=== PATIENT | male | born 1945 | race Caucasian/White ===

== ENCOUNTER 2017-12-13 08:00 | Outpatient (RCR) | payer MEDICARE, OTHER, SELFPAY ==
--- NOTE | 2017-11-26 10:02 | HP.PTEVAL_ITS ---
Patient's Visit Information RANDA ODEN is a 72 year old M referred to Physical Therapy by ALFRED MCKEON with a diagnosis of Imtervertebral disc degeneration...lumbar, radicuolopathy, spinal stenosis. Date of Evaluation: 11/26/17 Physical Therapist: Shital Armando - Visit Plan Frequency: 2x /Week Duration: 4 Weeks Plan: 2X/ week for 4 weeks for R ankle stretching, strengthening, R hip and knee strengthening, core stability, and gait training with HEP. ++++Keep in mind B has 2 B THR and 2 B TKR - Subjective Subjective: Pt reports that he had some bone spurs taken out of his back and they were pressing on the nerve. He reports that his foot has been slapping for 3 years now and has gotten weaker and weaker. He feels that his R leg is getting stronger. His surgery was 10-23-2017. Dr wanted pt to go to PT and get better faster. He has no pain. He has no trouble going up and down stairs but he uses the railing. No trouble getting out of a chair and he uses his arms cause he has had B knee replacements and B hip replacement. Pt is retired and he tinkers around his house. Dr said to use common sense and no other restrictions. Pt is going on a cruise in mid Nov. - Objective Tight R gastroc..... AROM R DF -22 degrees 12 degrees Ev, 15 degrees INV,. R ankle MMT: DF 2-/5, PF 4-/5, EV 3+/5 and INV 3+/5. LE MMT: hip flex R 4-/5, L hip flex 4/5, Hip abd R 4-/5 and L 4/5, Knee flex B 4/5, Knee ext B 4/5, hip ext B 4/5. Trunk AROM: flex 75%, Ext 75%, SB B 75%m Rot B 75%. Gait: walks with decreased stance time on the R and increased foot slap on the R. Posture: increased slouched posture - Goals Goal 1:: I HEP for R gastroc stretching and R DF strengtheing and R LE strength and core strength Goal Time Frame: 2-4 Weeks Goal 2:: Increase R ankle DF to -5 degrees from neutral Goal Time Frame: 2-4 Weeks Goal 3:: Walk with increased awarness of R foot slap. Goal Time Frame: 2-4 Weeks - Rehabilitation Potential Rehabilitation Potential: Good - Anticipated Interventions Patient/Client Instruction: Educate patient on: Plan of Care For the Purpose of:: To increase ROM, To increase oxygenation perfusion, To improve muscle performance and motor function, To improve ability to perform ADL 's, To increase tolerance to activity/condition/position, To improve performance and independence with ADL's, To improve gait and locomotor functions , To improve health of tissue, To decrease soft tissue restriction, To increase flexibility/ROM, To improve safety with gait Therapeutic Exercise to Include: Strength training, Body mechanics, Postural training, Flexibilty training, Gait and locomotor training, Passive ROM, Active ROM, Dynamic Lumbar Stabilization For the Purpose of:: To decrease pain, To increase ROM, To improve nutrient delivery to tissue, To improve muscle performance and motor function, To improve ability to perform ADL's, To increase tolerance to activity/condition/ position, To improve health of tissue, To decrease soft tissue restriction, To increase flexibility/ROM Functional Training to Include: Gait training For the Purpose of:: To improve gait and locomotor functions, To improve safety with gait Manual Therapy Techniques to Include: Passive ROM For the Purpose of:: To increase ROM Thank you for the opportunity to evaluate your patient. For Medicare and Medicare HMO plans, please review the plan of care and approve it. It will need to be FAXED BACK to us at [phone] for Medicare purposes. Please let me know if there are questions or concerns regarding this plan of care. Physician Signature: Date:
--- NOTE | 2017-12-13 08:24 | HP.PTDCSUM_ITS ---
HP - PT D/C Summary It has been my pleasure to treat RANDA ODEN under orders from GREGORY AGRAWAL JARED for the diagnosis of Imtervertebral disc degeneration...lumbar , radicuolopathy, spinal stenosis for a total of 6 visit(s). Discharge Date: 12/13/17 Please see the following information for a summary of their discharge status. - Subjective Subjective: Pt reports no pain. He reports that his L is still weak but he is feeling it is getting stronger. - Pain R foot Pain Intensity (Out of 10): 0 - Overall Improvement % Improvement: 80 - Objective Objective/Function: Pt still walks with a R foor slap but pt tries to control it more now since the eval. His R ankle DF is -7 degrees from neutral. Pt feels that he is I HEP and will continue to do exercises on the cruise and at home. - Goals Goal 1:: I HEP for R gastroc stretching and R DF strengtheing and R LE strength and core strength Goal Progress: Goal Met Goal 2:: Increase R ankle DF to -5 degrees from neutral Goal Progress: Progressing Goal 3:: Walk with increased awarness of R foot slap. Goal Progress: Progressing - Plan Plan: DC PT to HEP - D/C Information Discharge Comments: DC PT to HEP. Pt will continue with his strengthening at home. He knows that it will take a long time to recover and will continue to work on it at home. If there are questions or concerns regarding this patient's physical therapy, please feel free to call me at [phone]. Thank you for the referral of this patient. Sincerely, Shital Armando
== END 2017-12-13 19:00 | disposition home or self-care (01) ==
LOC: PT 08:00
PROVIDERS: Family Provider Family Medicine Geriatric Medicine; PCP Family Medicine Geriatric Medicine
DX: M51.36 Other intervertebral disc degeneration, lumbar region (principal); M54.16 Radiculopathy, lumbar region; M54.5 Low back pain; M48.062 Spinal stenosis, lumbar region with neurogenic claudication; Z96.641 Presence of right artificial hip joint
CPT/HCPCS: 97110; 97161; 97530

== ENCOUNTER → 2018-03-17 10:08 | Outpatient (CLI) | payer MEDICARE, OTHER, SELFPAY ==
[2018-03-17 12:50] LABS: Absolute Lymphocyte Count 1.41 X10^3/ul (0.83-4.51); Basophil# 0.02 X10^3/uL; Basophil% 0.3 % (0-1); Eosinophil# 0.15 X10^3/uL; Eosinophils% 2.1 % (0-5); Hemoglobin 14.6 g/dl (13.0-16.5); Lymphocyte # 1.41 X10^3/ul (4.0); Lymphocyte % 19.5 % (19-41); Mean Corpuscular Hgb 30.4 pg (27.0-32.0); Mean Corpuscular Volume 89.6 fL (80-94); Mean Platelet Vol. 10.5 fl (6.2-12.0); Monocyte# 0.68 X10^3/uL; Monocyte% 9.4 % (0-10); Neutrophil # 4.95 X10^3/uL (2.7-7.7); Neutrophil % 68.6 % (47-70); Platelet Count 255 K/mm3 (150-450); RBC Distribution Width CV 13.6 % (11.6-14.6); RBC Distribution Width SD 44.1 fl (35.1-43.9); White Blood Count 7.2 K/mm3 (4.4-11.0)
[2018-03-17 12:52] LABS: POSITIVE COUNT NO; POSITIVE DIFFERENTIAL NO; POSITIVE MORPHOLOGY NO
[2018-03-17 12:58] LABS: Vitamin D,25 Hydroxy 26.3 ng/mL (29.95-100.01)
[2018-03-17 12:59] LABS: AST(SGOT) 23 U/L (15-37); Alanine Aminotransfer ALT/SGPT 41 U/L (16-61); Albumin, Serum 3.9 g/dL (3.2-5.0); Alkaline Phosphatase 85 U/L (45-117); BUN 18 mg/dL (7-18); BUN/Creat Ratio 19.1 RATIO (10-20); Calcium,Total 9.5 mg/dL (8.5-10.1); Chloride 100 mmol/L (98-107); Creatinine, Serum 0.94 mg/dL (0.70-1.30); EST Glomerular Filtration Rate 84 mL/min (>60); Est Glom Filt Rate - Afr Amer 101 mL/min (>60); Globulin 3.8 g/dL (2.2-4.2); Glucose 114 mg/dL (74-106); Protein, Total 7.7 g/dL (6.4-8.2); Sodium Level 137 mmol/L (136-145)
[2018-03-17 13:00] LABS: Anion Gap 8 (5-15); Thyroid Stim Hormone (TSH) 1.19 uIU/mL (0.358-3.74)
== END ==
PROVIDERS: Family Provider Family Medicine Geriatric Medicine; PCP Family Medicine Geriatric Medicine; Visit Provider Family Medicine Geriatric Medicine
DX: E11.9 Type 2 diabetes mellitus without complications (principal); E55.9 Vitamin D deficiency, unspecified; I10 Essential (primary) hypertension; Z13.89 Encounter for screening for other disorder
CPT/HCPCS: 36415; 80053; 82306; 84443; 85025

== ENCOUNTER → 2018-09-30 11:46 | Outpatient (CLI) | payer MEDICARE, OTHER, SELFPAY ==
[2018-09-30 12:29] LABS: Absolute Neutrophil Count 4.6 X10^3/uL (2.0-7.7); Basophil# 0.01 X10^3/uL; Basophil% 0.1 % (0-1); Eosinophil# 0.16 X10^3/uL; Eosinophils% 2.3 % (0-5); Hematocrit 44.6 % (40-54); Hemoglobin 14.6 g/dl (13.0-16.5); Lymphocyte % 23.3 % (19-41); Mean Corp Hgb Conc 32.7 g/gl (32-36); Mean Corpuscular Hgb 29.9 pg (27.0-32.0); Mean Corpuscular Volume 91.4 fL (80-94); Mean Platelet Vol. 10.1 fl (6.2-12.0); Monocyte# 0.48 X10^3/uL; Neutrophil # 4.63 X10^3/uL (2.7-7.7); Neutrophil % 67.3 % (47-70); Platelet Count 266 K/mm3 (150-450); RBC Distribution Width CV 13.7 % (11.6-14.6); RBC Distribution Width SD 45.2 fl (35.1-43.9); Red Blood Count 4.88 M/mm3 (4.6-6.2); White Blood Count 6.9 K/mm3 (4.4-11.0)
[2018-09-30 12:32] LABS: POSITIVE COUNT NO; POSITIVE DIFFERENTIAL NO; POSITIVE MORPHOLOGY NO
[2018-09-30 12:51] LABS: Vitamin D,25 Hydroxy 30.6 ng/mL (29.95-100.01)
[2018-09-30 12:54] LABS: AST(SGOT) 24 U/L (15-37); Alanine Aminotransfer ALT/SGPT 36 U/L (16-61); Albumin, Serum 3.8 g/dL (3.2-5.0); Alkaline Phosphatase 77 U/L (45-117); Anion Gap 9 (5-15); BUN 21 mg/dL (7-18); BUN/Creat Ratio 19.8 RATIO (10-20); Calcium,Total 9.2 mg/dL (8.5-10.1); Chloride 102 mmol/L (98-107); Creatinine, Serum 1.06 mg/dL (0.70-1.30); EST Glomerular Filtration Rate 73 mL/min (>60); Est Glom Filt Rate - Afr Amer 88 mL/min (>60); Globulin 3.9 g/dL (2.2-4.2); Glucose 128 mg/dL (74-106); Potassium 4.1 mmol/L (3.5-5.1); Protein, Total 7.7 g/dL (6.4-8.2); Sodium Level 139 mmol/L (136-145); Thyroid Stim Hormone (TSH) 1.06 uIU/mL (0.358-3.74)
== END ==
PROVIDERS: Family Provider Family Medicine Geriatric Medicine; PCP Family Medicine Geriatric Medicine; Visit Provider Family Medicine Geriatric Medicine
DX: E11.9 Type 2 diabetes mellitus without complications (principal); E55.9 Vitamin D deficiency, unspecified
CPT/HCPCS: 36415; 80053; 82306; 84443; 85025

== ENCOUNTER → 2019-04-02 | Outpatient (CLI) | payer MEDICARE, OTHER, SELFPAY ==
[2019-04-02 12:44] LABS: Absolute Lymphocyte Count 1.15 X10^3/ul (0.83-4.51); Absolute Neutrophil Count 4.1 X10^3/uL (2.0-7.7); Basophil# 0.01 X10^3/uL; Basophil% 0.2 % (0-1); Eosinophil# 0.21 X10^3/uL; Eosinophils% 3.4 % (0-5); Hemoglobin 14.8 g/dl (13.0-16.5); Lymphocyte # 1.15 X10^3/ul (4.0); Lymphocyte % 18.6 % (19-41); Mean Corp Hgb Conc 33.6 g/gl (32-36); Mean Corpuscular Hgb 30.6 pg (27.0-32.0); Mean Corpuscular Volume 91.1 fL (80-94); Mean Platelet Vol. 10.4 fl (6.2-12.0); Monocyte# 0.66 X10^3/uL; Monocyte% 10.7 % (0-10); Neutrophil # 4.13 X10^3/uL (2.7-7.7); Neutrophil % 66.9 % (47-70); Platelet Count 239 K/mm3 (150-450); RBC Distribution Width CV 13.3 % (11.6-14.6); RBC Distribution Width SD 43.9 fl (35.1-43.9); Red Blood Count 4.83 M/mm3 (4.6-6.2); White Blood Count 6.2 K/mm3 (4.4-11.0)
[2019-04-02 13:02] LABS: POSITIVE COUNT NO; POSITIVE DIFFERENTIAL NO; POSITIVE MORPHOLOGY NO
[2019-04-02 13:16] LABS: ALB/GLOB Ratio 0.9 RATIO (0.9-2.4); AST(SGOT) 18 U/L (15-37); Alanine Aminotransfer ALT/SGPT 41 U/L (16-61); Albumin, Serum 3.6 g/dL (3.2-5.0); Alkaline Phosphatase 74 U/L (45-117); Anion Gap 10 (5-15); BUN 16 mg/dL (7-18); BUN/Creat Ratio 16.7 RATIO (10-20); Chloride 101 mmol/L (98-107); Creatinine, Serum 0.96 mg/dL (0.70-1.30); EST Glomerular Filtration Rate 82 mL/min (>60); Est Glom Filt Rate - Afr Amer 99 mL/min (>60); Globulin 3.8 g/dL (2.2-4.2); Glucose 170 mg/dL (74-106); Protein, Total 7.4 g/dL (6.4-8.2); Sodium Level 139 mmol/L (136-145); Thyroid Stim Hormone (TSH) 0.75 uIU/mL (0.358-3.74)
[2019-04-02 13:17] LABS: Vitamin D,25 Hydroxy 25.8 ng/mL (29.95-100.01)
== END | disposition home or self-care (01) ==
LOC: POLAB3 09:20
PROVIDERS: Family Provider Family Medicine Geriatric Medicine; PCP Family Medicine Geriatric Medicine; Visit Provider Family Medicine Geriatric Medicine
DX: E11.9 Type 2 diabetes mellitus without complications (principal); E55.9 Vitamin D deficiency, unspecified; I10 Essential (primary) hypertension
CPT/HCPCS: 36415; 80053; 82306; 84443; 85025

== ENCOUNTER → 2019-10-05 11:37 | Outpatient (CLI) | payer MEDICARE, OTHER, SELFPAY ==
[2019-10-05 12:31] LABS: Absolute Lymphocyte Count 0.88 X10^3/uL (0.83-4.51); Absolute Neutrophil Count 7.7 X10^3/uL (2.0-7.7); Basophil# 0.04 X10^3/uL; Basophil% 0.4 % (0-1); Eosinophil# 0.17 X10^3/uL; Eosinophils% 1.7 % (0-5); Hematocrit 44.4 % (40-54); Hemoglobin 14.7 g/dL (13.0-16.5); Lymphocyte # 0.88 X10^3/ul (4.0); Lymphocyte % 8.8 % (19-41); Mean Corp Hgb Conc 33.1 g/dL (32-36); Mean Corpuscular Hgb 30.2 pg (27.0-32.0); Mean Corpuscular Volume 91.2 fL (80-94); Mean Platelet Vol. 10.5 fl (6.2-12.0); Monocyte# 1.19 X10^3/uL; Monocyte% 11.9 % (0-10); NRBC Flagged by Analyzer 0 % (0-5); Neutrophil # 7.71 X10^3/uL (2.7-7.7); Neutrophil % 76.8 % (47-70); Platelet Count 228 K/mm3 (150-450); RBC Distribution Width CV 12.8 % (11.6-14.6); RBC Distribution Width SD 43.1 fl (35.1-43.9); Red Blood Count 4.87 M/mm3 (4.6-6.2)
[2019-10-05 12:52] LABS: Vitamin B12 910 pg/mL (211-911); Vitamin D,25 Hydroxy 17.4 ng/mL (29.95-100.01)
[2019-10-05 13:10] LABS: ALB/GLOB Ratio 0.8 RATIO (0.9-2.4); AST(SGOT) 19 U/L (15-37); Alanine Aminotransfer ALT/SGPT 35 U/L (16-61); Albumin, Serum 3.5 g/dL (3.2-5.0); Alkaline Phosphatase 94 U/L (45-117); Anion Gap 7 (5-15); BUN 24 mg/dL (7-18); BUN/Creat Ratio 20.2 RATIO (10-20); Calcium,Total 9.1 mg/dL (8.5-10.1); Chloride 99 mmol/L (98-107); Creatinine, Serum 1.19 mg/dL (0.70-1.30); EST Glomerular Filtration Rate 64 mL/min (>60); Est Glom Filt Rate - Afr Amer 77 mL/min (>60); Globulin 4.3 g/dL (2.2-4.2); Glucose 240 mg/dL (74-106); Protein, Total 7.8 g/dL (6.4-8.2); Sodium Level 135 mmol/L (136-145); Thyroid Stim Hormone (TSH) 0.85 uIU/mL (0.358-3.74)
== END ==
PROVIDERS: Family Provider Family Medicine Geriatric Medicine; PCP Family Medicine Geriatric Medicine; Visit Provider Family Medicine Geriatric Medicine
DX: E11.9 Type 2 diabetes mellitus without complications (principal); E55.9 Vitamin D deficiency, unspecified; I10 Essential (primary) hypertension
CPT/HCPCS: 36415; 80053; 82306; 82607; 84443; 85025

== ENCOUNTER → 2019-10-06 11:48 | Outpatient (CLI) | payer MEDICARE, OTHER, SELFPAY ==
--- NOTE | 2019-10-06 12:48 | CT_ITS ---
STUDY: CT BRAIN WITHOUT CONTRAST REASON FOR EXAM: Male, 73 years old. Frontal head injury due to a fall. RADIATION DOSAGE (If Supplied By Facility): CTDIvol = ( 60.81 ) mGy, DLP = ( 1089.89 ) mGycm TECHNIQUE: Transaxial CT imaging of the brain was performed without administration of intravenous contrast material. Individualized dose optimization techniques were used for this CT. COMPARISON: No relevant priors. FINDINGS: Normal soft tissue structures. Normal calvarium. There is mild cerebral atrophy with widening of the extra-axial spaces and ventricular dilatation. There are areas of decreased attenuation within the white matter tracts of the supratentorial brain, consistent with microvascular disease changes. There are small punctate calcifications of the basal ganglia which are seen in the aging brain as a normal variant. Normal brainstem. Normal cerebellum. There is no intracranial hemorrhage. There are no findings of an acute ischemic infarction. Atherosclerotic calcification of the cavernous portions of the internal carotid arteries as well as the vertebral arteries. Normal visualized paranasal sinuses. CT/Brain/Head without Contrast IMPRESSION: Chronic involutional changes of the brain. Electronically Signed: Guero Fry, at 13:59 EST , Service support ,
--- NOTE | 2019-10-06 12:48 | CT_ITS ---
STUDY: CT ABDOMEN AND PELVIS WITH CONTRAST REASON FOR EXAM: Male, 73 years old. Left-sided abdominal pain. RADIATION DOSAGE (If Supplied By Facility): CTDIvol = ( 20.72 ) mGy, DLP = ( 1209.99 ) mGycm TECHNIQUE: Transaxial images were obtained from the dome of the diaphragm to the symphysis pubis without oral contrast. 100ML ISOVUE 370 was administered. Sagittal and coronal images were reconstructed. Individualized dose optimization techniques were used for this CT. COMPARISON: None. FINDINGS: The visualized lung bases are unremarkable. Coronary artery calcification. There is decreased attenuation of the liver consistent with steatosis. Normal gallbladder and extrahepatic biliary system. There is a benign calcified granuloma of the spleen. Normal pancreas. Normal bilateral adrenal glands. Normal right kidney. There is a 4.7 cm by 5.4 cm cyst in the upper pole of the left kidney. There is a small hiatal hernia. Normal small intestine. There are multiple colonic diverticula consistent with diverticulosis. The appendix is visualized and appears normal. There is scattered atherosclerotic calcification of the abdominal aorta, without a demonstrated aneurysm. Normal inferior vena cava. Normal retroperitoneum. Diffusely thickened bladder wall although the bladder is not completely distended. There is small bilateral inguinal hernia containing adipose tissue. There are diffuse degenerative changes of the visualized lumbar spine. The patient is status post bilateral hip replacement. This causes beam hardening artifact with decreased assessment of the pelvic structures. CT/Abdomen/Pelvis WITH Contrast IMPRESSION: Fatty infiltration of the liver. Small hiatal hernia. Left renal cyst. Sigmoid diverticulosis. Electronically Signed: Guero Fry, at 13:58 EST , Service support ,
== END ==
PROVIDERS: Family Provider Family Medicine Geriatric Medicine; PCP Family Medicine Geriatric Medicine; Referring Provider Family Medicine Geriatric Medicine; Visit Provider Family Medicine Geriatric Medicine
DX: N39.0 Urinary tract infection, site not specified (principal); R10.9 Unspecified abdominal pain
CPT/HCPCS: 70450; 74177; 87077; 87086; 87088; 87186; Q9967

== ENCOUNTER → 2020-04-12 11:54 | Outpatient (CLI) | payer MEDICARE, OTHER, SELFPAY ==
[2020-04-12 12:32] LABS: Basophil# 0.03 X10^3/uL; Basophil% 0.4 % (0-1); Eosinophil# 0.18 X10^3/uL; Eosinophils% 2.5 % (0-5); Hemoglobin 14.9 g/dL (13.0-16.5); Lymphocyte % 19.2 % (19-41); Mean Corp Hgb Conc 33.1 g/dL (32-36); Mean Corpuscular Hgb 30.3 pg (27.0-32.0); Mean Corpuscular Volume 91.6 fL (80-94); Mean Platelet Vol. 10.5 fl (6.2-12.0); Monocyte# 0.64 X10^3/uL; Monocyte% 8.8 % (0-10); NRBC Flagged by Analyzer 0 % (0-5); Neutrophil # 5.03 X10^3/uL (2.7-7.7); Neutrophil % 68.7 % (47-70); Platelet Count 249 K/mm3 (150-450); RBC Distribution Width SD 43.4 fl (35.1-43.9); Red Blood Count 4.91 M/mm3 (4.6-6.2); White Blood Count 7.3 K/mm3 (4.4-11.0)
[2020-04-12 12:50] LABS: Vitamin D,25 Hydroxy 29.6 ng/mL
[2020-04-12 13:03] LABS: AST(SGOT) 21 U/L (15-37); Alanine Aminotransfer ALT/SGPT 37 U/L (16-61); Albumin, Serum 3.8 g/dL (3.2-5.0); Alkaline Phosphatase 76 U/L (45-117); Anion Gap 7 (5-15); BUN 15 mg/dL (7-18); BUN/Creat Ratio 16.4 RATIO (10-20); Calcium,Total 9.4 mg/dL (8.5-10.1); Chloride 101 mmol/L (98-107); Creatinine, Serum 0.92 mg/dL (0.70-1.30); EST Glomerular Filtration Rate 86 mL/min (>60); Est Glom Filt Rate - Afr Amer 104 mL/min (>60); Globulin 3.8 g/dL (2.2-4.2); Glucose 162 mg/dL (74-106); Potassium 4.1 mmol/L (3.5-5.1); Protein, Total 7.6 g/dL (6.4-8.2); Sodium Level 138 mmol/L (136-145); Thyroid Stim Hormone (TSH) 0.96 uIU/mL (0.358-3.74)
== END ==
PROVIDERS: PCP Family Medicine Geriatric Medicine; Visit Provider Family Medicine Geriatric Medicine
DX: E11.9 Type 2 diabetes mellitus without complications (principal); E55.9 Vitamin D deficiency, unspecified; I10 Essential (primary) hypertension
CPT/HCPCS: 36415; 80053; 82306; 84443; 85025

== ENCOUNTER → 2020-10-13 09:01 | Outpatient (CLI) | payer MEDICARE, OTHER, SELFPAY ==
[2020-10-13 13:13] LABS: Absolute Lymphocyte Count 1.38 X10^3/uL (0.83-4.51); Absolute Neutrophil Count 5.5 X10^3/uL (2.0-7.7); Basophil# 0.02 X10^3/uL; Basophil% 0.3 % (0-1); Eosinophil# 0.18 X10^3/uL; Eosinophils% 2.3 % (0-5); Hematocrit 46.3 % (40-54); Lymphocyte # 1.38 X10^3/ul (4.0); Lymphocyte % 17.8 % (19-41); Mean Corp Hgb Conc 32.4 g/dL (32-36); Mean Corpuscular Hgb 29.6 pg (27.0-32.0); Mean Corpuscular Volume 91.3 fL (80-94); Mean Platelet Vol. 10.1 fl (6.2-12.0); Monocyte# 0.67 X10^3/uL; Monocyte% 8.7 % (0-10); NRBC Flagged by Analyzer 0 % (0-5); Neutrophil # 5.47 X10^3/uL (2.7-7.7); Neutrophil % 70.6 % (47-70); Platelet Count 274 K/mm3 (150-450); RBC Distribution Width CV 12.9 % (11.6-14.6); RBC Distribution Width SD 43.1 fl (35.1-43.9); Red Blood Count 5.07 M/mm3 (4.6-6.2); White Blood Count 7.7 K/mm3 (4.4-11.0)
[2020-10-13 13:28] LABS: Vitamin D,25 Hydroxy 31.9 ng/mL
[2020-10-13 13:33] LABS: AST(SGOT) 14 U/L (15-37); Alanine Aminotransfer ALT/SGPT 32 U/L (16-61); Albumin, Serum 3.8 g/dL (3.2-5.0); Alkaline Phosphatase 78 U/L (45-117); Anion Gap 5 (5-15); BUN 18 mg/dL (7-18); BUN/Creat Ratio 18.3 RATIO (10-20); Calcium,Total 9.2 mg/dL (8.5-10.1); Chloride 102 mmol/L (98-107); Creatinine, Serum 0.98 mg/dL (0.70-1.30); EST Glomerular Filtration Rate 79 mL/min (>60); Est Glom Filt Rate - Afr Amer 96 mL/min (>60); Globulin 3.8 g/dL (2.2-4.2); Glucose 160 mg/dL (74-106); Potassium 3.9 mmol/L (3.5-5.1); Protein, Total 7.6 g/dL (6.4-8.2); Sodium Level 138 mmol/L (136-145); Thyroid Stim Hormone (TSH) 1.08 uIU/mL (0.358-3.74)
== END ==
PROVIDERS: PCP Family Medicine Geriatric Medicine; Visit Provider Family Medicine Geriatric Medicine
DX: E11.9 Type 2 diabetes mellitus without complications (principal); E55.9 Vitamin D deficiency, unspecified; I10 Essential (primary) hypertension
CPT/HCPCS: 36415; 80053; 82306; 84443; 85025

== ENCOUNTER → 2020-11-17 09:09 | Outpatient (CLI) | payer MEDICARE, OTHER, SELFPAY ==
[2020-11-17 10:17] LABS: Absolute Lymphocyte Count 1.12 X10^3/uL (0.83-4.51); Basophil# 0.02 X10^3/uL; Basophil% 0.3 % (0-1); Eosinophil# 0.12 X10^3/uL; Eosinophils% 1.7 % (0-5); Hematocrit 45.2 % (40-54); Hemoglobin 15.1 g/dL (13.0-16.5); Lymphocyte # 1.12 X10^3/ul (4.0); Lymphocyte % 16.2 % (19-41); Mean Corp Hgb Conc 33.4 g/dL (32-36); Mean Corpuscular Hgb 30.1 pg (27.0-32.0); Mean Corpuscular Volume 90.2 fL (80-94); Mean Platelet Vol. 10.1 fl (6.2-12.0); Monocyte# 0.59 X10^3/uL; Monocyte% 8.5 % (0-10); NRBC Flagged by Analyzer 0 % (0-5); Neutrophil # 5.04 X10^3/uL (2.7-7.7); Platelet Count 252 K/mm3 (150-450); RBC Distribution Width CV 12.8 % (11.6-14.6); Red Blood Count 5.01 M/mm3 (4.6-6.2); White Blood Count 6.9 K/mm3 (4.4-11.0)
[2020-11-17 10:47] LABS: Erythrocyte Sedimentation Rate 17 mm/hr (0-20)
[2020-11-17 11:02] LABS: CRP < 2.90 mg/L (0.0-3.0)
== END ==
PROVIDERS: PCP Family Medicine Geriatric Medicine; Referring Provider Ophthalmology; Visit Provider Ophthalmology
DX: H53.2 Diplopia (principal)
CPT/HCPCS: 36415; 85025; 85652; 86140

== ENCOUNTER → 2021-02-08 06:56 | Outpatient (CLI) | payer MEDICARE, OTHER, SELFPAY ==
[2021-02-02 09:03] VITALS: BMI 35.0
[2021-02-08 07:49] LABS: BUN 29 mg/dL (7-18); Cholesterol 178 mg/dL (200); Creatinine, Serum 1.18 mg/dL (0.70-1.30); EST Glomerular Filtration Rate 64 mL/min (>60); Est Glom Filt Rate - Afr Amer 77 mL/min (>60); High Density Lipoprotein 60 mg/dL; Triglycerides 122 mg/dL; Very Low Density Lipoprotein 24 mg/dL (5-40)
[2021-02-08 07:56] LABS: Vitamin B12 481 pg/mL (211-911)
[2021-02-15 14:09] LABS: Free Kappa Light Chains 13.7 mg/L (3.3-19.4); Free Lambda Light Chains 16.7 mg/L (5.7-26.3)
[2021-02-15 17:07] LABS: ACHR Recep AB, Blocking 42 % (0-25)
== END ==
PROVIDERS: PCP Family Medicine Geriatric Medicine; Referring Provider Psychiatry & Neurology Neurology; Visit Provider Psychiatry & Neurology Neurology
DX: G62.9 Polyneuropathy, unspecified (principal); I10 Essential (primary) hypertension; G70.00 Myasthenia gravis without (acute) exacerbation
CPT/HCPCS: 36415; 80061; 82565; 82607; 82746; 83519; 83883; 84520

== ENCOUNTER → 2021-02-14 10:00 | Outpatient (CLI) | payer MEDICARE, OTHER, SELFPAY ==
[2021-02-02 09:03] VITALS: BMI 35.0
--- NOTE | 2021-02-14 10:00 | MRI_ITS ---
STUDY: MRI BRAIN WITH AND WITHOUT CONTRAST REASON FOR EXAM: Male, 75 years old. Sixth nerve palsy of left eye, CVD -- ATTENTION TO THE ORBITS TECHNIQUE: Standardized multiplanar fat and water weighted pulse sequences were obtained. 23ML IV DOTAREM was administered for the contrast portion of the examination. COMPARISON: None. FINDINGS: There is moderate cerebral atrophy with widening of the extra-axial spaces and ventricular dilatation. There are a limited number of small white matter hyperintensities, distributed throughout the deep white matter tracts of the cerebral hemispheres, consistent with mild chronic white matter ischemic changes. There is no evidence for recent intracranial ischemia or other cause of cytotoxic edema on diffusion weighted imaging (DWI). Normal T2* images of the brain without demonstrated susceptibility artifact. There is no demonstrated hemosiderin stain. Normal bilateral basal ganglia. Normal thalami. There is no extra-axial fluid accumulation. Normal flow voids within the major intracranial circulation suggesting patency by spin echo criteria. Normal venous enhancement. There is no enhancing intra-axial or extra-axial abnormality. Normal sella turcica, pituitary gland, infundibular stalk, optic chiasm and hypothalamus. Normal tectal plate and pineal gland. Normal midbrain, esthela and medulla. Normal cerebellum. Normal basal cisterns. Normal bilateral temporal bones. Normal bilateral internal auditory canals. No demonstrated orbital abnormality, within the constraints of a routine brain study. Normal visualized paranasal sinuses. Normal calvarium and skull base. Normal visualized soft tissue structures. Normal visualized upper cervical spine. MRI/Brain W/WO Contrast IMPRESSION: Senescent changes with no evidence of acute intracranial bleed, mass or ischemia. With particular attention to the region of cranial nerve extending from the peripontine cistern and Dorello''s canal is no evidence of underlying lesion. There is a curvilinear vessel lies in close proximity to the exiting nerve root from the brainstem with abutment not completely excluded. Recommend thin slice cross-sectional fiesta MRI imaging and skull base imaging for further assessment of cranial nerve course. Electronically Signed: Stevenson Hinojosa DO at 12:37 EDT , Service support ,
== END ==
PROVIDERS: PCP Family Medicine Geriatric Medicine; Referring Provider Psychiatry & Neurology Neurology; Visit Provider Psychiatry & Neurology Neurology
DX: H49.22 Sixth [abducent] nerve palsy, left eye (principal); I67.9 Cerebrovascular disease, unspecified
CPT/HCPCS: 70553; A9575

== ENCOUNTER → 2021-04-20 10:46 | Outpatient (CLI) | payer MEDICARE, OTHER, SELFPAY ==
[2021-02-02 09:03] VITALS: BMI 35.0
[2021-04-20 12:38] LABS: Absolute Lymphocyte Count 1.46 X10^3/uL (0.83-4.51); Absolute Neutrophil Count 5.1 X10^3/uL (2.0-7.7); Basophil# 0.02 X10^3/uL; Basophil% 0.3 % (0-1); Eosinophil# 0.16 X10^3/uL; Eosinophils% 2.1 % (0-5); Hematocrit 45.9 % (40-54); Hemoglobin 15.1 g/dL (13.0-16.5); Lymphocyte # 1.46 X10^3/ul (0.83-4.51); Lymphocyte % 19.6 % (19-41); Mean Corp Hgb Conc 32.9 g/dL (32-36); Mean Corpuscular Hgb 30.1 pg (27.0-32.0); Mean Corpuscular Volume 91.6 fL (80-94); Mean Platelet Vol. 10.2 fl (6.2-12.0); Monocyte# 0.72 X10^3/uL; Monocyte% 9.7 % (0-10); NRBC Flagged by Analyzer 0 % (0-5); Neutrophil # 5.06 X10^3/uL (2.7-7.7); Neutrophil % 67.9 % (47-70); Platelet Count 282 K/mm3 (150-450); RBC Distribution Width CV 13.2 % (11.6-14.6); RBC Distribution Width SD 44.7 fl (35.1-43.9); Red Blood Count 5.01 M/mm3 (4.6-6.2); White Blood Count 7.5 K/mm3 (4.4-11.0)
[2021-04-20 13:06] LABS: ALB/GLOB Ratio 1.1 RATIO (0.9-2.4); AST(SGOT) 17 U/L (15-37); Alanine Aminotransfer ALT/SGPT 32 U/L (16-61); Albumin, Serum 3.9 g/dL (3.2-5.0); Alkaline Phosphatase 76 U/L (45-117); Anion Gap 5 (5-15); BUN 19 mg/dL (7-18); Calcium,Total 9.3 mg/dL (8.5-10.1); Chloride 103 mmol/L (98-107); Creatinine, Serum 0.95 mg/dL (0.70-1.30); EST Glomerular Filtration Rate 82 mL/min (>60); Est Glom Filt Rate - Afr Amer 99 mL/min (>60); Globulin 3.5 g/dL (2.2-4.2); Glucose 127 mg/dL (74-106); Potassium 4.1 mmol/L (3.5-5.1); Protein, Total 7.4 g/dL (6.4-8.2); Sodium Level 138 mmol/L (136-145); Thyroid Stim Hormone (TSH) 0.88 uIU/mL (0.358-3.74)
== END ==
PROVIDERS: PCP Family Medicine Geriatric Medicine; Visit Provider Family Medicine Geriatric Medicine
DX: E11.9 Type 2 diabetes mellitus without complications (principal); I10 Essential (primary) hypertension; E55.9 Vitamin D deficiency, unspecified
CPT/HCPCS: 36415; 80053; 82306; 84443; 85025

== ENCOUNTER 2021-06-26 07:30 | Outpatient (RCR) | payer MEDICARE, OTHER, SELFPAY ==
[2021-02-02 09:03] VITALS: BMI 35.0
--- NOTE | 2021-05-31 09:51 | HP.PTEVAL_ITS ---
Patient's Visit Information RANDA ODEN is a 75 year old M referred to Physical Therapy by ALFRED JENKINS with a diagnosis of IVDD, muscle weakness, LBP,. Date of Evaluation: 05/31/21 Physical Therapist: Varghese Shukla, JASONT, OCS, CSCS - Visit Plan Frequency: 2x /Week Duration: 4-6 Weeks Plan: Pt has h/o B JOHAN, foot drop R and does nto wish to pursue AFOs. see 2x/week for 4-6 weeks for. 1. rolout and stretch R gluts, HS, quads. 2. Teach and progress strength of R ankle, R hip and core strength,general strength via exercises patient can eventually do at home iwth list and pics as able. 3 - Subjective I got trouble with R hip and it hurts when I am on it alot. LB feels good adn MRI was OK. Pain is up to 5/10 if on it alot and comfortable at rest. It casues him to limp when he walks. B JOHAN in the past. R leg is weaker adn has been getting that way for years. Harder to stand on it and it gives out. Integrity of hip replacement is good, it was done in 1999. Sleep is OK. Not employed. Hip pain keeps him from being on feet extended times. Has a few steps at home with rail which are OK. 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 No numbness or tingling in the leg, may have some numbness in top of R foot much of time. No falls and no cane or walker needed. No regualr exercises. - Pain R lateral hip Pain Intensity (Out of 10): 0 Pain Intensity Range: 0, 5 - Objective R foot drop and foot slap with ambulation. R trendelenberg with ambulation. Safe adn steady with decent balance for age. Steps are reciprocal with one rail required and obviously weak on R vs. L. AROM R hip past 90 fexion easily, 2 ext, 15 abduction, 30 ext rotation, IR not tested. strength R hip abd and ext 3, felxion 4-, knee flex/ext 4+ B, ankle DF R 2+, ev/inv 3, PF 3+. L sided ankle 4-. reflexes 2/3 B patella, 1/3 b achilles. Sensation WNL to gross light touch in legs. Coordination to reciprocal toe tap is diminished on R due to weakness. R SLS is poor due to weakness. LB AROM is very limited in ext, decent flexion, no pain. - Balance/Special Test Scores Functional Gait Assessment Score: 26 % Disability: 13.3400 Oswestry Low Back Score: 9 - Goals Goal 1:: I approp EHp for ankle and hip strength and general mobility to diminish future problems. Goal Time Frame: 4-6 Weeks Goal 2:: Walk 75% further and longer without hip pain subjectively by patient. Goal Time Frame: 4-6 Weeks Goal 3:: Pt work in shop for 30 minutes without increased hip pain or LBP Goal Time Frame: 4-6 Weeks Goal 4:: Oswestry score <5/10 Goal Time Frame: 4-6 Weeks - Rehabilitation Potential Physical Therapy Diagnosis: mobility deficits and weakness from multiple comorbidities. Rehabilitation Potential: Questionable - Anticipated Interventions Patient/Client Instruction: Educate patient on: Condition For the Purpose of:: To decrease pain, To improve nutrient delivery to tissue, To improve muscle performance and motor function, To increase tolerance to activity/condition/position, To improve ability of physical actions for home/community/work/leisure, To improve gait and locomotor functions Therapeutic Exercise to Include: Strength training, Flexibilty training, Gait and locomotor training, Passive ROM, Active ROM For the Purpose of:: To decrease pain, To increase ROM, To improve muscle performance and motor function, To increase tolerance to activity/condition/position Manual Therapy Techniques to Include: Soft tissue mobilization For the Purpose of:: To decrease pain, To increase ROM, To improve nutrient delivery to tissue Thank you for the opportunity to evaluate your patient. For Medicare and Medicare HMO plans, please review the plan of care and approve it. It will need to be FAXED BACK to us at [phone] for Medicare purposes. For Medicare only, by signing this I certify the plan of care. Please let me know if there are questions or concerns regarding this plan of care. Physician Signature: Date:
--- NOTE | 2021-06-26 08:28 | HP.PTDCSUM ---
It has been my pleasure to treat RANDA ODEN referred by ALFRED JENKINS, with the diagnosis of IVDD, muscle weakness, LBP, for a total of 9 visit(s). Discharge Date: 06/26/21 Please see the following information for a summary of their discharge status. Subjective: Better. Lately I can walk without much problem. Legs still feel weak. Pain over weekend to 4/10 with activity ,s till comfortable sitting. Sleep is OK. Waiting on doctor to get back with him. HEP daily for stretching. Stretching has helped the most. Has been working around the house and had to stop around dinner time but that hasn't been too bad lately. R lateral hip Pain Intensity (Out of 10): 0 % Improvement: 40 Objective/Function: LB AROM min deficits in all motions, no increase pain. R ankle DF weak at 3- and foot slap with ambulation, flexibility into DF to 0 PROM. Pt ambulates well with slight steppage gait and tatianna other deviations. Does not wish to pursue further therapy or AFO at this point, will check with doctor if needed but ankle has been weak for 6+ years according to patient. Goal 1:: I approp EHp for ankle and hip strength and general mobility to diminish future problems. Goal Progress: Goal Met Goal 2:: Walk 75% further and longer without hip pain subjectively by patient. Goal Progress: 40% Goal 3:: Pt work in shop for 30 minutes without increased hip pain or LBP Goal Progress: 5 hrs work other day. Goal 4:: Oswestry score <5/10 Goal Progress: Goal Met Plan: d/c to HEP Discharge Comments: Pt to [facility] via [facility] and contact doctor if concerns or changes mind on AFO. If there are questions or concerns regarding this patient's physical therapy, please feel free to call me at [phone]. Thank you for the referral of this patient. Sincerely, Varghese Shukla, DPT, OCS, CSCS Balance/Gait/Functional tests - Balance/Special Test Scores Functional Gait Assessment Score: 26 % Disability: 13.3400 Oswestry Low Back Score: 4
== END 2021-06-26 19:00 | disposition home or self-care (01) ==
LOC: PT 07:30
PROVIDERS: PCP Family Medicine Geriatric Medicine
DX: M51.36 Other intervertebral disc degeneration, lumbar region (principal); M62.81 Muscle weakness (generalized); Z96.641 Presence of right artificial hip joint
CPT/HCPCS: 97110; 97162; 97164

== ENCOUNTER → 2021-10-11 09:25 | Outpatient (CLI) | payer MEDICARE, OTHER, SELFPAY ==
[2021-10-11 11:03] LABS: Absolute Lymphocyte Count 1.23 X10^3/uL (0.83-4.51); Absolute Neutrophil Count 4.2 X10^3/uL (2.0-7.7); Basophil# 0.03 X10^3/uL; Basophil% 0.5 % (0-1); Eosinophil# 0.15 X10^3/uL; Eosinophils% 2.4 % (0-5); Hematocrit 43.4 % (40-54); Hemoglobin 14.7 g/dL (13.0-16.5); Lymphocyte # 1.23 X10^3/ul (0.83-4.51); Lymphocyte % 19.6 % (19-41); Mean Corp Hgb Conc 33.9 g/dL (32-36); Mean Corpuscular Hgb 30.9 pg (27.0-32.0); Mean Corpuscular Volume 91.2 fL (80-94); Mean Platelet Vol. 10.4 fl (6.2-12.0); Monocyte# 0.63 X10^3/uL; NRBC Flagged by Analyzer 0 % (0-5); Neutrophil # 4.24 X10^3/uL (2.7-7.7); Neutrophil % 67.3 % (47-70); Platelet Count 258 K/mm3 (150-450); RBC Distribution Width CV 12.9 % (11.6-14.6); RBC Distribution Width SD 43.2 fl (35.1-43.9); Red Blood Count 4.76 M/mm3 (4.6-6.2); White Blood Count 6.3 K/mm3 (4.4-11.0)
[2021-10-11 11:17] LABS: Vitamin D,25 Hydroxy 30.8 ng/mL
[2021-10-11 11:29] LABS: ALB/GLOB Ratio 0.9 RATIO (0.9-2.4); AST(SGOT) 17 U/L (15-37); Alanine Aminotransfer ALT/SGPT 35 U/L (16-61); Albumin, Serum 3.5 g/dL (3.2-5.0); Alkaline Phosphatase 71 U/L (45-117); Anion Gap 8 (5-15); BUN 20 mg/dL (7-18); Calcium,Total 9.3 mg/dL (8.5-10.1); Chloride 104 mmol/L (98-107); EST Glomerular Filtration Rate 77 mL/min (>60); Est Glom Filt Rate - Afr Amer 93 mL/min (>60); Globulin 3.8 g/dL (2.2-4.2); Glucose 232 mg/dL (74-106); Protein, Total 7.3 g/dL (6.4-8.2); Sodium Level 140 mmol/L (136-145); Thyroid Stim Hormone (TSH) 0.75 uIU/mL (0.358-3.74)
== END ==
PROVIDERS: PCP Family Medicine Geriatric Medicine; Visit Provider Family Medicine Geriatric Medicine
DX: E11.9 Type 2 diabetes mellitus without complications (principal); E55.9 Vitamin D deficiency, unspecified; I10 Essential (primary) hypertension
CPT/HCPCS: 36415; 80053; 82306; 84443; 85025

== ENCOUNTER 2023-07-05 03:56 | Observation (INO) | payer MEDICARE, OTHER, SELFPAY ==
[2023-07-05] VITALS (13 sets, daily range): BP systolic 109–192; BP diastolic 64–94; PULSE 58–78; RESP 14–18; TEMP 35.9–36.9; O2SAT 92–100; BMI 37.0; BMI 34.4
--- NOTE | 2023-07-05 | GALL_PTH ---
PATIENT: RANDA ODEN LOC: [facility] U#:[id number] AGE/SX: 77/M ROOM: [facility] RE07/05/[address]: Dr. Lupe Loera MD : 1945 BED: 1 DIS: 07/05/2023 SPEC #: [id number] RECD: 07/05/23 16:26 STATUS: NADIA WILSONRoseanna #: [id number] DAPHNIE: 07/05/23 00:[address]: Lupe Loera DEPT: SURGICAL PATHOLOGY RECD BY: Chu Owens ENTERED: 07/08/23 10:10 SP TYPE: TEO FRANCIS DR: Dr. Ledy Bellamy MD Tissues: Gallbladder, NOS Procedures: Surgery Specimen Level III HEADER OPERATION: Laparoscopic cholecystectomy with IOC PRE-OP DIAGNOSIS: Acute calculous cholecystitis TISSUE SUBMITTED: Gallbladder MICROSCOPIC DIAGNOSIS Gallbladder, cholecystectomy: Acute and chronic cholecystitis and cholelithiasis. AM:hafsa 07/09/2023 MICROSCOPIC DESCRIPTION Slides are reviewed. GROSS DESCRIPTION Received is one container labeled with the patient's name and designated gallbladder. The specimen consists of a previously opened gallbladder measuring 10.0 x 4.0 x 1.0 cm. The external surface is smooth and glistening. Focally, it is granular, hemorrhagic and contains cautery artifact. The specimen container contains multiple yellow-lofton calculi and fragments of calculi ranging in size from 0.5 to 3.0 cm. The mucosa is bile-stained and without any mass lesions. The gallbladder wall averages 0.2 cm in thickness and is free of mass lesions. Binding Cementer French Cord sections of the gallbladder and the cystic duct at margin of resection are submitted in one cassette. / AM:hafsa 07/08/2023 TC:2 CPT: 49040
--- NOTE | 2023-07-05 03:57 | EKG12_ITS ---
Test Reason : CP Blood Pressure : / mmHG Vent. Rate : 061 BPM Atrial Rate : 061 BPM P-R Int : 192 ms QRS Dur : 092 ms QT Int : 418 ms P-R-T Axes : 065 062 057 degrees QTc Int : 420 ms Normal sinus rhythm Normal ECG Confirmed by CATIA JANG, MARILYN ([id number]), news editor NELIDA MUÑOZ ([id number]) on 07/05/2023 12:23:24 PM Referred By: Confirmed By:MARILYN BARDALES MD
--- NOTE | 2023-07-05 04:23 | EDS_ITS ---
HPI HPI - GI History of Present Illness Chief Complaint: Chest Pain Informant: patient Abdominal Pain/Flank Pain Onset: Hours (5-6) Context: Gradual Onset Timing: Continuous Quality: Aching Location: RUQ Current Severity: Moderate Maximum Severity: Severe Worsened by: Nothing Relieved by: - (A little better after a couple Advil) Nausea/Vomiting/Emesis GI Symptom: Negative for Nausea or Vomiting Diarrhea/Melena/Hematochezia GI Symptom: Negative for Diarrhea, Melena or Hematochezia Associated Symptoms Associated Symptoms: Negative for Dysuria, Frequency, Hematuria or Urgency Narrative Narrative: Patient with high right upper quadrant/lower right chest discomfort that feels like it is in his right scapula as well. Not colicky, continuous. Started several hours after eating a hamburger for dinner. Never had this before but suspects this may be his gallbladder based on other family members descriptions and the fact that they have had gallbladder issues too. No history of any abdominal surgeries in the past. Denies any fevers, chills, nausea, vomiting, he has had no cough recently and the discomfort is not pleuritic. [facility] Medical History Cataract Diplopia Myasthenia Ptosis Sixth nerve palsy Type II diabetes mellitus Home Medications metformin 500 mg tablet 500 mg PO DAILY supplement 01/31/21 [History Last Taken 07/04/23] multivitamin 1 tablet PO DAILY supplement 01/31/21 [History Last Taken 07/04/23] cholecalciferol (vitamin D3) 50 mcg (2,000 unit) capsule 100 mcg PO DAILY supplement 02/02/21 [History Last Taken Unknown] zinc acetate 50 mg (zinc) capsule (Galzin) 50 mg PO DAILY supplement 01/19/22 [History Last Taken Unknown] atenolol 50 mg tablet 50 mg PO DAILY #90 tabs 03/25/23 [Rx Last Taken 07/04/23] pyridostigmine bromide 60 mg tablet 60 mg .Route .COMPLEX #60 tabs 07/04/23 [Rx Last Taken Unknown] lisinopril 20 mg-hydrochlorothiazide 25 mg tablet 0.5 tab PO DAILY BP 07/05/23 [History Last Taken 07/04/23] oxycodone-acetaminophen 5 mg-325 mg tablet 1 - 2 tab PO Q6H PRN pain 3 days #14 tabs 07/05/23 [Rx Last Taken Unknown] prednisone 10 mg tablet See Rx Instructions PO .COMPLEX Myestenia 07/05/23 [History Last Taken Unknown] vitamins A,C,Z-tlpa-jnplww 2,148 mcg-113 mg-45 mg-17.4 mg tablet (Eye Multivitamin) 1 tab PO BID macular deg 07/05/23 [History Last Taken 07/04/23] Allergy/AdvReac Type Severity Reaction Status Date / Time Penicillins AdvReac Intermediate Rash Verified 07/05/23 03:58 Family History Father Diabetes Brother Cerebral aneurysm, Onset Age: 92 Other Cataract Surgical History History of bilateral hip replacements History of bilateral knee replacement History of carpal tunnel surgery Social History Smoking Status: Never smoker Smokeless tobacco user: chewing tobacco Electronic Cigarette Use: not used how long ago did patient quit smoking: stopped chew tobacco second hand exposure: No alcohol intake: never substance use type: does not use arnaldo/jewish: Christianity seatbelt use: sometimes ROS ROS ED Constitutional Constitutional ED: Denies chills or fever(s) Eyes Eyes: Denies change in vision or diplopia ENT ENT ED: Denies rhinorrhea or sore throat Cardiovascular Cardiovascular: Denies chest pain or palpitations Respiratory/Chest Respiratory/Chest: Denies cough or dyspnea Gastrointestinal Gastrointestinal: Reports abdominal pain; Denies diarrhea, nausea or vomiting Genitourinary Genitourinary ED: Denies dysuria or hematuria Musculoskeletal Musculoskeletal: Reports back pain; Denies neck pain Integumentary Denies abscess or rash Neurologic Neurologic: Denies headache(s), paresthesias or weakness Psychiatric Psychiatric: Denies anxiety or suicidal thoughts EXAM Physical Exam Const Vital Signs: 07/05/23 05:07 07/05/23 07:30 Pulse Rate 58 L 62 Respiratory Rate 14 18 Blood Pressure 150/79 H Blood Pressure Mean 102 Pulse Ox 98 97 Oxygen Delivery Method Room Air Room Air Positive well nourished, well developed and obese General Appearance ED: well developed and NAD Nutritional Appearance: obese HEENT Reports moist mucous membranes normocephalic and atraumatic Eyes PERRL and EOMs intact bilaterally Neck full ROM and supple Resp normal respiratory effort and clear to auscultation bilaterally Cardio regular rate, regular rhythm and no murmurs GI non-distended GI Narrative: Mildly point tender in the right upper quadrant negative Lew, benign abdomen with no guarding or rebound. No pulsatile masses palpable. No State [place] sign no Prakash Iglesias sign. Auscultation: normoactive bowel sounds Palpation: soft Back/Spine no CVA tenderness General Back: other FROM Extremity normal to inspection General Extremety ED: Negative for edema, pulses abnormal or tenderness General Extremity: Negative for edema or pulses abnormal Neuro oriented x3, CN's II-XII intact bilaterally and no sensory deficits noted Sensorium / Orientation: awake and alert Motor Exam: strength 5/5 throughout Skin no rashes or lesions noted and no wounds MDM MDM MDM Narrative Medical decision making narrative: Patient presents around 4 AM, ultrasound is not available so I did a [id number] ED ultrasound myself, confirming that he does have what appears to be a single shadowing gallstone near the neck of the gallbladder, and a very mil dly positive sonographic Lew. I do not see any pericholecystic fluid, the gallbladder wall is measuring approximately 0.38 cm. Labs were obtained and in the meantime he was given IV Zofran and morphine for his discomfort, this did not help significantly so he was then given fentanyl. His labs are noted, he has a leukocytosis. Prednisone is on his medication list, however in discussion with the patient, he was just prescribed that and has not started it yet. I discussed with surgery, they recommend waiting until the morning to get an ultrasound, treating him until then, and certainly he may need to be admitted. Ultrasound obtained, reviewed images and report which I agree with, basically consistent with acute cholecystitis. Surgery to admit. Cefepime given in the emergency department empirically given his penicillin allergy. History & Record Review Discussion w/independent historian: Patient and Significant other Lab Data Attestation: I reviewed the patient's lab results. Labs: Laboratory Results - last 24 hr 07/05/23 04:07 Sodium 137 Potassium 3.7 Chloride 102 Carbon Dioxide 27.0 Anion Gap 8 BUN 23 H Creatinine 1.05 Estim Creat Clear Calc 64.67 Est GFR (MDRD) Af Amer 88 Est GFR (MDRD) Non-Af 73 BUN/Creatinine Ratio 21.9 H Glucose 242 H Calcium 9.0 Total Bilirubin 0.70 AST 15 ALT 27 Alkaline Phosphatase 89 Total Protein 7.3 Albumin 3.7 Globulin 3.6 Albumin/Globulin Ratio 1.0 Lipase 10 L Radiography Diagnostic Testing: Clinical Impression(s) from Imaging Studies Gallbladder Ultrasound 07/05/23 05:13 IMPRESSION: 1. Cholelithiasis with secondary signs of acute cholecystitis. There is also mild dilatation of common bile duct. 2. Hepatic steatosis and hepatomegaly. 3. Small simple appearing right renal cyst. Electronically Signed: Brian Redman MD at 7:46 EDT , Rhythm Strip Rhythm Strip: Sinus Rhythm Rate: 65 Ectopy: None EKG Initial EKG: Attestation: I personally reviewed and interpreted this EKG as follows: Interpretation: Sinus Rhythm and No Acute Injury Pattern Comments: nml EKG Management Discussion w/another healthcare provider: [employer] (surgery Dr. Loera) Discharge Plan Dx/Rx/DC Orders Clinical Impression: Acute calculous cholecystitis Disposition Disposition: Acute Care Hospital [facility] Discharge Date/Time: 07/05/23 09:02
[2023-07-05] MEDS: Morphine 4 MG/ML Syringe IV (04:28)
[2023-07-05] MEDS: Ondansetron 4 MG/2 ML Vial IV ×2 (04:28→06:04)
[2023-07-05 04:30] LABS: Absolute Lymphocyte Count 1.11 X10^3/uL (0.83-4.51); Basophil# 0.03 X10^3/uL; Basophil% 0.2 % (0-1); Eosinophil# 0.18 X10^3/uL; Eosinophils% 1.4 % (0-5); Hematocrit 44.4 % (40-54); Hemoglobin 14.8 g/dL (13.0-16.5); Lymphocyte # 1.11 X10^3/ul (0.83-4.51); Lymphocyte % 8.3 % (19-41); Mean Corp Hgb Conc 33.3 g/dL (32-36); Mean Corpuscular Hgb 30.4 pg (27.0-32.0); Mean Corpuscular Volume 91.2 fL (80-94); Mean Platelet Vol. 10.1 fl (6.2-12.0); Monocyte# 0.91 X10^3/uL; Monocyte% 6.8 % (0-10); NRBC Flagged by Analyzer 0 % (0-5); Neutrophil # 11.01 X10^3/uL (2.7-7.7); Neutrophil % 82.8 % (47-70); Platelet Count 239 K/mm3 (150-450); RBC Distribution Width CV 12.7 % (11.6-14.6); RBC Distribution Width SD 42.3 fl (35.1-43.9); Red Blood Count 4.87 M/mm3 (4.6-6.2); White Blood Count 13.3 K/mm3 (4.4-11.0)
[2023-07-05 04:47] LABS: AST(SGOT) 15 U/L (15-37); Alanine Aminotransfer ALT/SGPT 27 U/L (16-61); Albumin, Serum 3.7 g/dL (3.2-5.0); Alkaline Phosphatase 89 U/L (45-117); Anion Gap 8 (5-15); BUN 23 mg/dL (7-18); BUN/Creat Ratio 21.9 RATIO (10-20); Chloride 102 mmol/L (98-107); Creatinine, Serum 1.05 mg/dL (0.70-1.30); EST Glomerular Filtration Rate 73 mL/min (>60); Est Glom Filt Rate - Afr Amer 88 mL/min (>60); Estimated Creatinine Clearance 64.67 ml/min; Globulin 3.6 g/dL (2.2-4.2); Glucose 242 mg/dL (74-106); Lipase 10 U/L (13-75); Potassium 3.7 mmol/L (3.5-5.1); Protein, Total 7.3 g/dL (6.4-8.2); Sodium Level 137 mmol/L (136-145)
--- NOTE | 2023-07-05 05:13 | US_ITS ---
INDICATION: pain RUQ EXAMINATION: US Abdomen Limited (quadrant) TECHNIQUE: Prakash scale and color doppler imaging was performed of the right upper quadrant. COMPARISON: CT abdomen and pelvis from 10/06/2019 FINDINGS: LIVER: There is moderate increased echogenicity. No focal hepatic lesion. No significant intrahepatic biliary ductal dilatation. The right lobe of liver is enlarged and measures 19 cm in length. GALLBLADDER AND BILIARY TREE: Distended gallbladder. Large shadowing stone within mid gallbladder lumen measures up to 3 cm diameter. Shadowing stone within gallbladder neck measures 2 cm diameter. Layering gallbladder sludge also noted. Thickened gallbladder wall measures 4.9 mm. Trace pericholecystic fluid detected. The proximal common bile duct is slightly dilated and measures 7 mm. Sonographic Lew''s sign: Negative. PANCREAS: Proximal pancreas unremarkable with distal pancreas obscured by bowel gas. RIGHT KIDNEY: Right kidney measures 12.4 cm in length. No hydronephrosis. Small anechoic 12 mm cyst at lower pole. VESSELS: Unremarkable as visualized. US/Gallbladder IMPRESSION: 1. Cholelithiasis with secondary signs of acute cholecystitis. There is also mild dilatation of common bile duct. 2. Hepatic steatosis and hepatomegaly. 3. Small simple appearing right renal cyst. Electronically Signed: Brian Redman MD at 7:46 EDT ,
[2023-07-05] MEDS: fentaNYL 100 MCG/2 ML Ampul 50 MCG IV (05:18)
[2023-07-05] MEDS: Cefepime HCl 2 GM in 0.9% Normal Saline (100mL MB+) 100 ML IV ×2 (05:36→13:26)
[2023-07-05] MEDS: Ketorolac 15 MG/ML Vial 10 MG IV (07:49)
--- NOTE | 2023-07-05 08:14 | EX.PCM.CON.S ---
Assessment & Plan Assessment/Plan (1) Acute calculous cholecystitis: (2) Myasthenia gravis: (3) Type II diabetes mellitus: (4) Essential hypertension: HPI Consult Data Date of Consult: 07/05/23 HPI Narrative HPI Narrative: RANDA ODEN is a 77 M who presents [facility] Medical History Cataract Diplopia Myasthenia Ptosis Sixth nerve palsy Type II diabetes mellitus Home Medications metformin 500 mg tablet 500 mg PO DAILY 01/31/21 [History Last Taken Unknown] multivitamin 1 tablet PO DAILY 01/31/21 [History Last Taken Unknown] cholecalciferol (vitamin D3) 50 mcg (2,000 unit) capsule 100 mcg PO DAILY 02/02/21 [History Last Taken Unknown] zinc acetate 50 mg (zinc) capsule (Galzin) 50 mg PO DAILY 01/19/22 [History Last Taken Unknown] lisinopril 20 mg-hydrochlorothiazide 25 mg tablet 1 tab PO DAILY #90 tabs 02/11/23 [Rx Last Taken Unknown] atenolol 50 mg tablet 50 mg PO DAILY #90 tabs 03/25/23 [Rx Last Taken Unknown] pyridostigmine bromide 60 mg tablet 60 mg .Route .COMPLEX #60 tabs 07/04/23 [Rx Last Taken Unknown] Allergy/AdvReac Type Severity Reaction Status Date / Time Penicillins AdvReac Intermediate Rash Verified 07/05/23 03:58 Family History Father Diabetes Brother Cerebral aneurysm, Onset Age: 92 Other Cataract Surgical History History of bilateral hip replacements History of bilateral knee replacement History of carpal tunnel surgery Social History Smoking Status: Never smoker Smokeless tobacco user: chewing tobacco Electronic Cigarette Use: not used how long ago did patient quit smoking: stopped chew tobacco second hand exposure: No alcohol intake: never substance use type: does not use arnaldo/hinduism: Tenriism seatbelt use: sometimes Lab / Micro Data 07/05/23 04:07 07/05/23 04:07 Labs: Laboratory Results - last 24 hr 07/05/23 04:07: WBC 13.3 H, RBC 4.87, Hgb 14.8, Hct 44.4, MCV 91.2, MCH 30.4, MCHC 33.3, RDW Std Deviation 42.3, RDW Coeff of Pascale 12.7, Plt Count 239, MPV 10.1, Immature Gran % (Auto) 0.500, Neut % (Auto) 82.8 H, Lymph % (Auto) 8.3 L, [place] % (Auto) 6.8, Eos % (Auto) 1.4, Baso % (Auto) 0.2, Absolute Neuts (auto) 11.0 H, Absolute Lymphs (auto) 1.11, Nucleated RBC % 0, Sodium 137, Potassium 3.7, Chloride 102, Carbon Dioxide 27.0, Anion Gap 8, BUN 23 H, Creatinine 1.05, Estim Creat Clear Calc 64.67, Est GFR (MDRD) Af Amer 88, Est GFR (MDRD) Non-Af 73, BUN/Creatinine Ratio 21.9 H, Glucose 242 H, Calcium 9.0, Total Bilirubin 0.70, AST 15, ALT 27, Alkaline Phosphatase 89, Total Protein 7.3, Albumin 3.7, Globulin 3.6, Albumin/Globulin Ratio 1.0, Lipase 10 L Rhythm Strip Rhythm Strip: Sinus Rhythm Rate: 65 Ectopy: None Radiology Impression Gallbladder Ultrasound 07/05/23 05:13 IMPRESSION: 1. Cholelithiasis with secondary signs of acute cholecystitis. There is also mild dilatation of common bile duct. 2. Hepatic steatosis and hepatomegaly. 3. Small simple appearing right renal cyst. Electronically Signed: Brian Redman MD at 7:46 EDT ,
--- NOTE | 2023-07-05 08:36 | HP.PCM.SX_ITS ---
HPI - General General Date of Admission: 07/05/23 HPI Narrative RANDA ODEN, is a 77 M who presents to the ER due to right upper quadrant pain nausea and vomiting. This happened about 10 PM last night patient last ate about 8 PM had a burger. Patient states still continues to have right upper quadrant pain did radiate to the back as mostly and only in the right upper quadrant. Patient had an ultrasound showed gallstones and acute cholecystitis with gallbladder wall about 4 mm, patient's white blood count 13.3, normal LFTs. Patient was given cefepime IV in the ER. [facility] Medical History Cataract Diplopia Myasthenia Ptosis Sixth nerve palsy Type II diabetes mellitus Home Medications metformin 500 mg tablet 500 mg PO DAILY 01/31/21 [History Last Taken Unknown] multivitamin 1 tablet PO DAILY 01/31/21 [History Last Taken Unknown] cholecalciferol (vitamin D3) 50 mcg (2,000 unit) capsule 100 mcg PO DAILY 02/02/21 [History Last Taken Unknown] zinc acetate 50 mg (zinc) capsule (Galzin) 50 mg PO DAILY 01/19/22 [History Last Taken Unknown] lisinopril 20 mg-hydrochlorothiazide 25 mg tablet 1 tab PO DAILY #90 tabs [Rx Last Taken Unknown] atenolol 50 mg tablet 50 mg PO DAILY #90 tabs 03/25/23 [Rx Last Taken Unknown] pyridostigmine bromide 60 mg tablet 60 mg .Route .COMPLEX #60 tabs 07/04/23 [Rx Last Taken Unknown] Allergy/AdvReac Type Severity Reaction Status Date / Time Penicillins AdvReac Intermediate Rash Verified 07/05/23 03:58 Family History Father Diabetes Brother Cerebral aneurysm, Onset Age: 92 Other Cataract Surgical History History of bilateral hip replacements History of bilateral knee replacement History of carpal tunnel surgery Social History Smoking Status: Never smoker Smokeless tobacco user: chewing tobacco Electronic Cigarette Use: not used how long ago did patient quit smoking: stopped chew tobacco second hand exposure: No alcohol intake: never substance use type: does not use arnaldo/baptism: Denominational seatbelt use: sometimes ROS Constitutional Constitutional: Reports anorexia; Denies fever(s) Eyes Eyes: Denies change in vision ENT HEENT: Denies dysphagia Cardiovascular Cardiovascular: Denies palpitations Respiratory/Chest Respiratory/Chest: Denies cough Gastrointestinal Gastrointestinal: Reports abdominal pain, nausea and vomiting; Denies coffee ground emesis or diarrhea Genitourinary Genitourinary: Denies dysuria Vital Signs Vital Signs Vital Signs: 07/05/23 03:58 07/05/23 05:07 07/05/23 07:30 Temperature 96.7 F L Temperature Source Temporal Pulse Rate 68 58 L 62 Respiratory Rate 16 14 18 Blood Pressure 192/79 H 150/79 H Blood Pressure Mean 116 102 Pulse Ox 97 98 97 Oxygen Delivery Method Room Air Room Air Room Air Weight Weight: 273 lb 9.498 oz Body Mass Index (BMI) 37.0 Physical Exam Const alert, oriented x3 and no apparent distress HEENT normocephalic and head/scalp atraumatic Resp normal respiratory effort Cardio regular rate GI soft to palpation; Negative for non-distended Palpation: tender epigastric and RUQ; Negative for guarding Extremity no clubbing, cyanosis or edema Neuro CN's II-XII intact bilaterally Psych mental status grossly normal Results Lab / Micro Data 07/05/23 04:07 07/05/23 04:07 Labs: Laboratory Results - last 24 hr 07/05/23 04:07: WBC 13.3 H, RBC 4.87, Hgb 14.8, Hct 44.4, MCV 91.2, MCH 30.4, MCHC 33.3, RDW Std Deviation 42.3, RDW Coeff of Pascale 12.7, Plt Count 239, MPV 10.1, Immature Gran % (Auto) 0.500, Neut % (Auto) 82.8 H, Lymph % (Auto) 8.3 L, [place] % (Auto) 6.8, Eos % (Auto) 1.4, Baso % (Auto) 0.2, Absolute Neuts (auto) 11.0 H, Absolute Lymphs (auto) 1.11, Nucleated RBC % 0, Sodium 137, Potassium 3.7, Chloride 102, Carbon Dioxide 27.0, Anion Gap 8, BUN 23 H, Creatinine 1.05, Estim Creat Clear Calc 64.67, Est GFR (MDRD) Af Amer 88, Est GFR (MDRD) Non-Af 73, BUN/Creatinine Ratio 21.9 H, Glucose 242 H, Calcium 9.0, Total Bilirubin 0.70, AST 15, ALT 27, Alkaline Phosphatase 89, Total Protein 7.3, Albumin 3.7, Globulin 3.6, Albumin/Globulin Ratio 1.0, Lipase 10 L Rhythm Strip Rhythm Strip: Sinus Rhythm Rate: 65 Ectopy: None Radiology Impression Gallbladder Ultrasound 07/05/23 05:13 IMPRESSION: 1. Cholelithiasis with secondary signs of acute cholecystitis. There is also mild dilatation of common bile duct. 2. Hepatic steatosis and hepatomegaly. 3. Small simple appearing right renal cyst. Electronically Signed: Brian Redman MD at 7:46 EDT , Assessment & Plan Assessment/Plan (1) Acute calculous cholecystitis: (2) Type II diabetes mellitus: (3) Myasthenia gravis: PLAN: Plan Reviewed the anatomy with the patient and discussed the procedure: laparoscopic cholecystectomy with possible cholangiograms, possible open. Review risks including but not limited to bleeding, infection, hernia, bile leak, retained gallstones requiring another procedure ERCP- Endoscopic Retrograde Cholangiopancreatography, injury to another organ (bile ducts, common bile duct, small bowel, etc.) and conversion to an open procedure. All questions were answered. Continue home medications for diabetes and blood pressure and prednisone for myasthenia gravis. Lupe Loera M.D. Pager: [phone] [facility] [address] [place] [address], [facility], [address] [place] [address] Office: [phone]
--- NOTE | 2023-07-05 08:37 | NURSING ---
MED SURG ROBOTHAM ACUTE CHOLECYSTITIS
[2023-07-05] MEDS: 0.9% Normal Saline (1000mL) 1,000 ML 120 ML IV (10:36)
[2023-07-05] MEDS: Morphine 2 MG/ML Syringe IV (10:36)
[2023-07-05] MEDS: 0.9% Saline Lock 10 ML Syringe IV (10:36)
[2023-07-05] MEDS: Atenolol 50 MG Tablet PO (11:34)
[2023-07-05] MEDS: hydroCHLOROthiazide 25 MG Tablet PO (11:34)
[2023-07-05] MEDS: Lisinopril 20 MG Tablet PO (11:34)
[2023-07-05 13:17] LABS: Bedside Glucose 191 mg/dL (74-106)
--- NOTE | 2023-07-05 13:30 | RAD_ITS ---
STUDY: INTRAOPERATIVE CHOLANGIOGRAM. REASON FOR EXAM: Male, 77 years old. Lap wlilie with IOC FLUOROSCOPY TIME (if supplied): ( 6 seconds ) minutes/seconds. 7.31 mGy. TECHNIQUE: An intraoperative quadrant was performed by the surgeon. Imaging was submitted. COMPARISON: None. FINDINGS: The intra and extrahepatic biliary ducts are unremarkable. Free flow of contrast is seen within the duodenum.
[2023-07-05] MEDS: Bupivacaine Mpf 0.5% 30 ML VIAL (14:24)
--- NOTE | 2023-07-05 14:27 | PCM.OPRPT ---
Report of Operation Date of Procedure: 07/05/23 Pre-Operative Diagnosis: Acute calculus cholecystitis Post-Operative Diagnosis: Same Surgery/Procedure Performed:: Laparoscopic cholecystectomy with cholangiograms Surgeon: Lupe Loera applications development consultant: Imelda Stringer Type of Anesthesia: General/Supplemental Anesthesiologist: Varghese Hoang Special Medications: Cefepime 2 g IV x1 Specimen's removed: Gallbladder and stones Estimated Blood Loss (mL): 20 cc Description of Procedure: Indications: this is a 77 year-old male who developed abdominal pain/nausea/vomiting and on workup was found to have acute cholecystitis, cholelithiasis, with a normal common bile duct. Laparoscopic cholecystectomy was elected. Description procedure: The patient was placed on operating table in supine position. A timeout was completed verifying correct patient, procedure, site, position and special equipment prior to beginning procedure. General Anesthesia was induced. The abdomen was prepped and draped in usual sterile fashion. An incision was made in the natural skin line above the umbilicus. The fascia was elevated and incised. The peritoneum was elevated and incised. Entry into the peritoneum was confirmed visually and no bowel was noted in the vicinity of the incision. Piper trocar was placed. The abdomen was insufflated with carbon dioxide to a pressure of 12-15 mmHg. Patient tolerated insufflation well. The laparoscope was then inserted and abdomen inspected. No injuries from initial trocar placement were noted. Additional trochars were then inserted in the following locations 5 mm trocar in the epigastrium and 2 more 5 mm trochars along the right costal margin. The abdomen was inspected no abnormalities were found. The table is placed in reverse Trendelenburg position with the right side up. Gallbladder was tensely distended?aspiration needle was used to decompress. The dome of the gallbladder was grasped with atraumatic grasper passed through the lateral port and retracted over the dome of the liver. Infundibulum was then grasped with atraumatic grasper through the midclavicular port and retracted to the right lower quadrant. This maneuver exposed Calot's triangle. The peritoneum overlying the gallbladder infundibulum was then incised and cystic duct and artery identified and circumferentially dissected. Matt catheter was used for cholangiograms. The cholangiogram showed good filling of the common bile duct into the duodenum with no filling defects, good filling of the right and left bile ducts as well. The cystic duct and artery were then doubly clipped and divided close to the gallbladder. The gallbladder then dissected from its peritoneal attachments by electrocautery. Hemostasis was checked and the gallbladder and contained stones were removed using the endoscopic retrieval bag through the umbilical port. The gallbladder is passed off table as specimen. The gallbladder fossa was irrigated with saline and hemostasis obtained. There is no evidence of bleeding from the gallbladder fossa or cystic artery leakage of bile from the cystic duct stump. Secondary trochars removed under direct vision. No bleeding was noted the trocar sites. The laparoscope was withdrawn and umbilical trocar removed. The abdomen was allowed to collapse. The fascia of the 12 mm trocar was closed with a [id number] 0 Vicryl suture. The skin was closed with sutures of 4-0 Monocryl and Steri-Strips. The patient was extubated. The patient tolerated procedure well and was taken to the postanesthesia care unit in stable condition. Complications none
--- NOTE | 2023-07-05 14:30 | DCINST_ITS ---
Discharge Instructions Diet Discharge Diet: Light diet - advance as tolerated Activity Discharge Activity: May Not Drive (while taking narcotic pain medications.) May shower in (days): 1 Lifting Restrictions: no lifting >20 lbs x 2 wks, no strenuous exercise for 4 wks Dressing / Incision Call your doctor if your incision/area has: Continuous Slow Oozing, Sudden Increased Bleeding, Increased Pain/ Swelling, Increased Redness, Foul Smelling Discharge and Swelling at the incision site Call your doctor if you observe: Fever of 101 or Higher Remove Dressing in: 2 days Cleanse incision/area with: Soap & Water Additional Dressing/Incision Instructions:: Steri-Strips will fall off in 7 to 10 days, if they do not fall off okay to remove after 10 days. Follow Up Care Please Follow Up With: Lupe Loera MD When: Call the office for a follow-up appointment 2 weeks; after 5 PM and on the weekends call [phone] with any concerns. Test Results: Test results from this visit will be discussed in further detail at your follow- up appointment, if applicable. Discharge Plan Admission Admit Date/Time: 07/05/23 08:41 Attending Provider: Lupe Loera Primary Care Provider: Ledy Bellamy Discharge Orders/Prescriptions Prescriptions: New oxycodone-acetaminophen 5-325 mg tablet 1 - 2 tab PO Q6H PRN (Reason: pain) 3 Days Qty: 14 0RF Continued metformin 500 mg tablet 500 mg PO DAILY multivitamin Tablet 1 tablet PO DAILY cholecalciferol (vitamin D3) 50 mcg (2,000 unit) capsule 100 mcg PO DAILY Galzin 50 mg (zinc) capsule 50 mg PO DAILY pyridostigmine bromide 60 mg tablet 60 mg .ROUTE .COMPLEX Qty: 60 4RF Patient Comments: New prescripton. Has not started taking it yet Rx Instructions: Take 1/2 tablet orally twice per day for 3 days then 1 tablet twice per day thereafter. lisinopril-hydrochlorothiazide 20-25 mg tablet 0.5 tab PO DAILY prednisone 10 mg tablet See Rx Instructions PO .COMPLEX Patient Comments: TAKE 6 TABLETS BY MOUTH FOR 2 (TWO) DAYS, 5 (FIVE) TABLETS FOR 1 (ONE) DAY, FOUR TABLETS FOR 1 (ONE) DAY, 3 (THREE) TABLETS FOR 1 (ONE) DAY, 2 (TWO) TABLETS FOR 1 (ONE) DAY, THEN 1 (ONE) TABLET FOR 1 (ONE) DAY. Rx Instructions: see comments Eye Multivitamin 2,148 mcg-113 mg-45 mg-17.4mg tablet 1 tab PO BID Rx Instructions: administer with AM and PM meals atenolol 50 mg tablet 50 mg PO DAILY Qty: 90 3RF Referrals / Follow Up: Ledy Bellamy MD [Primary Care Provider] - Disposition Disposition (needs filled in before D/C Order can be placed): Home, Self Care
--- NOTE | 2023-07-05 15:59 | CHAPLAIN ---
Type of Pastoral Visit ___ Initial Visit ___ Follow-up Visit ___ On-call Visit ___ General Patient Visit ___ Spiritual Assessment ___ Family Conference ___ Bereavement ___ Rapid Response ___ Code Blue ___ Other (describe below) Pastoral Care Referral From ___ Patient ___ Family ___ Nurse ___ Physician ___ Pan Operator ___ Staying Machine Operator ___ Other (describe below) Sacrament/Intervention ___ Active listening ___ Anointing ___ Oriental Orthodox ___ Bereavement ___ Communion ___ Eliana exploration ___ ___ Life review ___ Prayer ___ Reconciliation ___ Sacrament of Sick ___ Supportive presence ___ Wedding ___ Other (describe below) Pastoral Comments patient and bed are not in the room; left a calling card
[2023-07-05 16:00] LABS: Bedside Glucose 176 mg/dL (74-106)
== END 2023-07-05 16:12 | disposition home or self-care (01) ==
LOC: ED 08:22 → PCU 08:40
PROVIDERS: Admitting Provider Surgery; Emergency Provider Emergency Medicine; PCP Internal Medicine; Visit Provider Surgery
PROC: (CPT 47610; principal; 2023-07-05 12:40)
DX: K80.12 Calculus of gallbladder with acute and chronic cholecystitis without obstruction (principal); G70.00 Myasthenia gravis without (acute) exacerbation; E11.9 Type 2 diabetes mellitus without complications; Z79.84 Long term (current) use of oral hypoglycemic drugs; Z87.891 Personal history of nicotine dependence; Z79.899 Other long term (current) drug therapy; E66.9 Obesity, unspecified; Z68.37 Body mass index [BMI] 37.0-37.9, adult
CPT/HCPCS: 47563; 00790; 74300; 76000; 76705; 80053; 82962; 83690; 85025; 88304; 93005; 96365; 96366; 96375; 96376; 99221; 99284; J7030; J7120; A4216; G0378; J2405

== ENCOUNTER → 2025-02-15 | Outpatient (CLI) | payer MEDICARE, OTHER, SELFPAY ==
--- NOTE | 2025-02-15 08:26 | MRI_ITS ---
PROCEDURE: BRAIN W/WO CONTRAST 02/15/2025 REASON FOR EXAM: LEFT TINNITUS,HEARING LOSS TECHNIQUE: Brain MRI without and with intravenous contrast with additional dedicated imaging of the IACs. Multiplanar and multisequence images were obtained. CONTRAST: Contrast COMPARISON: none FINDINGS: Normal & comparable sizes of the seventh and eighth cranial nerves on both sides. No obvious related vascular loops or masses. Right anterior inferior cerebellar artery type I vascular loops. No cerebello-pontine angle masses detected. The examined mastoid air cells are clear. Normal appearance of the semicircular canals, vestibules and cochlea on both sides. No acute or hyperacute infarcts. Bilateral cerebral periventricular and subcortical patches of high T2/FLAIR WI signal. Normal MRI signal of the cerebellar hemispheres and brain stem. No intracerebral or extra-axial hematomas. Dilated ventricular system, cortical sulci and extra-axial CSF spaces. No shift of midline structures. Normal MRI appearance of orbital structures, both globes, optic nerves, optic chiasm, optic tracts and optic radiations. Scanned paranasal sinuses are unremarkable. MRI/Brain W/WO Contrast IMPRESSION: Right anterior inferior cerebellar artery type I vascular loops. No acute infarcts. No intracerebral or extra-axial hematomas. No enhancing mass es. Bilateral cerebral microvascular ischemic changes. Age appropriate brain involutional changes. [facility] [id number]
== END | disposition home or self-care (01) ==
LOC: MRI 08:04
PROVIDERS: PCP Internal Medicine; Referring Provider Otolaryngology; Visit Provider Otolaryngology
DX: H93.12 Tinnitus, left ear (principal); H90.3 Sensorineural hearing loss, bilateral
CPT/HCPCS: 70553; A9575

== ENCOUNTER 2025-10-04 10:30 | Outpatient (RCR) | payer MEDICARE, OTHER, SELFPAY ==
--- NOTE | 2025-09-06 10:04 | HP.PTEVAL_ITS ---
Patient's Visit Information Visit Information Visit Information: RANDA ODEN is a 79 year old M referred to Physical Therapy by Dr. Rudolph Willett DO with a diagnosis of C-spine DDD C5-C7, spondylolisthesis. Date of Evaluation: 09/06/25 Physical Therapist: RAMANDEEP Salas Visit Plan Frequency: 2x /Week Duration: 2 Months Plan: 2X/ week for 8 weeks for manual distraction and suboccip release, MT to the L c-spine paraspinals, mid trap, and levator, c-spine AROM, PROM, scapular strength, postural strength with US PRN to help with tissue elasticity and HEP for stretching in sitting or supine HEP: shoulder rolls BW, Scapular retraction, Rotation C-spine AROM Subjective Subjective: Pt has a stiff neck and some pain on the L side of his neck and some tingling on the L side of his neck. He had an x-ray and it showed arthritis. He has been to a chiropractor and they did not help. He saw a surgeon and he said to go to therapy first. He has no pain into his arms. He can sleep ok and it does not wake him up. His L shoulder is wore out too. No weakness in his arms other than his L shoulder. He reports no balance issues and reports that he has some back issues as well. Pain C-spine: Pain Intensity (Out of 10): 2 Objective Objective: Supervisor Estimator And Drafter strength: R handed R 62 and L 60 C-spine AROM: Rot B 25%, Flexion 50%, Ext 10%, SB R 10% B palpation: Very tight L levator and mid trap... tender along the L paraspinals. After 5 min of MT to Levator, mid trap and paraspinals on the L he was able to turn his head to the L with less pain and restriction. Manual distraction and suboccip release felt good to the patient. UE AROM: Flexion R aprox 120 and L approx 80 ABD R approx 120 and L approx 70 ER R 42 and L 20 R shoulder IR L3 and L L5 UE MMT: Flexion 12.8 and L 6.3 Balance/Special Test Scores Oswestry Neck Score: 10 Goals Goal 1:: I HEP Goal Time Frame: 6-8 Weeks Goal 2:: Increase C-spine AROM (at the time of the eval: C-spine AROM: Rot B 25%, Flexion 50%, Ext 10%, SB R 10% B) Goal Time Frame: 6-8 Weeks Goal 3:: Be able to turn neck to the L without sharp pain and tingling Goal Time Frame: 6-8 Weeks Rehabilitation Potential Rehabilitation Potential: Good Anticipated Interventions Patient/Client Instruction: Educate patient on: Condition and Plan of Care For the Purpose of:: To decrease pain, To decrease swelling/inflammation, To increase ROM, To improve nutrient delivery to tissue, To improve muscle performance and motor function, To improve ability to perform ADL's, To increase tolerance to activity/condition/position, To improve performance and independence with ADL's, To improve health of tissue, To decrease soft tissue restriction and To increase flexibility/ROM Therapeutic Exercise to Include: Strength training, Body mechanics, Postural training, Flexibilty training, Neuromotor development, Passive ROM, Active ROM and Scapular Strength/Stabilization For the Purpose of:: To decrease pain, To increase ROM, To improve nutrient delivery to tissue, To improve muscle performance and motor function, To improve ability to perform ADL's, To increase tolerance to activity/condition/position, To improve performance and independence with ADL's, To improve health of tissue, To decrease soft tissue restriction and To increase flexibility/ROM Manual Therapy Techniques to Include: Passive ROM and Soft tissue mobilization For the Purpose of:: To decrease pain, To increase ROM, To improve nutrient delivery to tissue, To improve muscle performance and motor function, To improve ability to perform ADL's, To increase tolerance to activity/condition/position, To improve performance and independence with ADL's, To decrease level of supervision to perform tasks, To improve health of tissue, To decrease soft tissue restriction and To increase flexibility/ROM Thermo therapy (hot pack): Yes Ultrasound (thermal/non thermal): Yes For the Purpose of:: To decrease pain, To increase ROM, To improve nutrient delivery to tissue, To improve muscle performance and motor function, To improve ability to perform ADL's, To improve gait and locomotor functions and To dec rease soft tissue restriction Text: Thank you for the opportunity to evaluate your patient. For Medicare and Medicare HMO plans, please review the plan of care and approve it. It will need to be FAXED BACK to us at [phone] for Medicare purposes. For Medicare only, by signing this I certify the plan of care. Please let me know if there are questions or concerns regarding this plan of care. Physician Signature: Date:
--- NOTE | 2025-10-04 10:55 | HP.PTDCSUM ---
Discharge Summary D/C summary: It has been my pleasure to treat RANDA ODEN referred by Dr. Rudolph Willett DO, with the diagnosis of C-spine DDD C5-C7, spondylolisthesis for a total of 9 visit(s). Discharge Date: 10/04/25 Please see the following information for a summary of their discharge status. Subjective Subjective: Pt reports that his neck is feeling better. He has a HEP and ready to be discharged to [facility]. Pain C-spine: Pain Intensity (Out of 10): 1 Overall Improvement % Improvement: 80 Objective Objective/Function: C-spine AROM: Rot B 50%, Flexion 50%, Ext 25%, SB R 10% B Neck Rotation tingling and sharp pain... improved Goals Goal 1:: I HEP Goal Progress: Goal Met Goal 2:: Increase C-spine AROM (at the time of the eval: C-spine AROM: Rot B 25%, Flexion 50%, Ext 10%, SB R 10% B) Goal Progress: Goal Met Goal 3:: Be able to turn neck to the L without sharp pain and tingling Goal Progress: Goal Met Plan Plan: DC PT to HEP D/C Information Discharge Comments: DC PT to HEP d/c sentence: If there are questions or concerns regarding this patient's physical therapy, please feel free to call me at [phone]. Thank you for the referral of this patient. Sincerely, Shital Armando, MPT Balance/Gait/Functional tests Balance/Special Test Scores Oswestry Neck Score: 3 Improvement % Improvement: 80
== END 2025-10-04 19:00 | disposition home or self-care (01) ==
LOC: PT 10:30
PROVIDERS: PCP Internal Medicine; Referring Provider Orthopaedic Surgery; Visit Provider Orthopaedic Surgery
DX: M50.322 Other cervical disc degeneration at C5-C6 level (principal); M50.323 Other cervical disc degeneration at C6-C7 level; M43.12 Spondylolisthesis, cervical region
CPT/HCPCS: 97110; 97140; 97161; 97530